=== PATIENT | male | born 1990 | race Caucasian/White ===

== ENCOUNTER 2019-05-27 13:00 | Emergency (ER) | payer SELFPAY ==
[2019-05-27 13:14] VITALS: BP 150/100
[2019-05-27] MEDS ORDERED: FLUCONAZOLE 100 MG TABLET PO STA (13:45)
--- NOTE | 2019-05-27 13:49 | ED Physician Documentation ---
History of Present Illness - Stated complaint Stated Complaint: RASH - Chief complaint Chief Complaint: General - History obtained from History obtained from: Patient (Extremely itchy rash, arms, neck, upper trunk for the last 3 days. He works with fiberglass. He says he has had similar milder rashes in the past that were treated with antifungal agent.) Review of Systems Constitutional: denies: Fever, Chills GI: denies: Abdominal Pain, Nausea, Vomiting Musculoskeletal: denies: Neck pain, Back pain PD PAST MEDICAL HISTORY - Present Medications Home Medications: Ambulatory Orders Medication Instructions Recorded Confirmed Doxepin [SINEquan] 10 mg PO TID PRN #20 capsule 05/27/19 Fluconazole [Diflucan] 150 mg PO ONCE PRN #1 tablet 05/27/19 - Allergies Allergies/Adverse Reactions: Allergies Allergy/AdvReac Type Severity Reaction Status Date / Time No Known Drug Allergies Allergy Verified 05/27/19 13:05 PD ED PE NORMAL - Vitals Vital signs reviewed: Yes - General General: Alert and oriented X 3, No acute distress - HEENT HEENT: Pharynx benign - Neck Neck: Supple, no meningeal sign, No bony TTP - Derm Derm: Other (He has nonspecific rash, slightly red raised areas almost confluent mostly in the back of the neck and occipital scalp, and flexor surfaces of the arms but not the wrists. It is not consistent with bug bites or scabies. It is also a little bit on the upper chest,) - Neuro Neuro: Alert and oriented X 3, Normal speech Results - Vitals Vitals: Vital Signs - 24 hr 05/27/19 13:05 Temperature 36.5 C Heart Rate 96 Respiratory 14 Rate Blood Pressure 150/100 H O2 Saturation 100 Oxygen O2 Source Room air Departure - Departure Disposition: 01 Home, Self Care Clinical Impression: Rash and nonspecific skin eruption Condition: Good Record reviewed to determine appropriate education?: Yes Instructions: ED Diaper Rash Infec Fungal Prescriptions: Doxepin [SINEquan] 10 mg PO TID PRN #20 capsule PRN Reason: Itching Fluconazole [Diflucan] 150 mg PO ONCE PRN #1 tablet PRN Reason: yeast infection Comments: As discussed to me this mostly looks like a fiberglass rash but as you mentioned you have been working with [employer] for a long time and never had this so we will also treat for A fungal infection. If not better in a week you can take a second dose of the antifungal medication. Do not drink or drive while taking the anti-itch medicine as it makes you a little bit sleepy. Return if worse. Follow-up with your doctor in 2 weeks if not better. Your blood pressure was elevated today on check into the emergency department. This does not mean that you have hypertension, it is a common phenomenon to come to the emergency department and have elevated blood pressure. I recommend that you see your primary care physician within the week to have it rechecked when you are feeling better.
== END 2019-05-27 14:00 | disposition home or self-care (01) ==
LOC: ED 13:00
DX: R21 Rash and other nonspecific skin eruption (principal); R03.0 Elevated blood-pressure reading, without diagnosis of hypertension
CPT/HCPCS: 99282; 99284; A9270

== ENCOUNTER 2019-09-02 08:00 | Outpatient (CLI) | payer SELFPAY | END 2019-09-02 23:59 | disposition home or self-care (01) | LOC: COV 08:00 | PROVIDERS: ATTEND Family Medicine | DX: R05 Cough (principal); R50.9 Fever, unspecified | CPT/HCPCS: 81599 ==

== ENCOUNTER 2020-09-10 17:39 | Emergency (ER) | payer OTHER ==
[2020-09-10 17:48] VITALS: BP 137/91
--- OUTSIDE RECORDS SUMMARY | 2020-09-10 17:59 | EXTERNAL MEDICAL SUMMARY RPT | Continuity of Care Document ---
:1990 Demographics Phone Unavailable Preferred Language Unknown Marital Status Unknown Christian Affiliation Unknown Race Unknown Ethnic Group Unknown Author Organization [facility] Address [address] [place] [address] Phone Social History date description facility [id number]
--- NOTE | 2020-09-10 19:26 | ED Physician Documentation ---
History of Present Illness - Stated complaint Stated Complaint: RT FOOT INJ - Chief complaint Chief Complaint: Ext Problem - History obtained from History obtained from: Patient - History of Present Illness Timing: Today Pain level max: 7 Pain level now: 7 - Additonal information Additional information: 29-year-old male states that he injured his right foot about a week ago and it has continued to cause him pain. States has a history of a fracture in that foot. Worse with walking and better with rest. 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 Review of Systems Constitutional: denies: Fever Respiratory: denies: Cough GI: denies: Vomiting PD PAST MEDICAL HISTORY - Past Medical History Past Medical History: No - Past Surgical History Past Surgical History: No - Present Medications Home Medications: Ambulatory Orders Medication Instructions Recorded Confirmed Naproxen Sodium [Aleve] 1 - 2 tab PO DAILY PRN 09/10/20 09/10/20 - Allergies Allergies/Adverse Reactions: Allergies Allergy/AdvReac Type Severity Reaction Status Date / Time No Known Drug Allergies Allergy Verified 09/10/20 17:48 - Living Situation Living Arrangement: reports: At home - Family History Family history: reports: Non contributory PD ED PE NORMAL - Vitals Vital signs reviewed: Yes - General General: Alert and oriented X 3, No acute distress - HEENT HEENT: Moist mucous membranes - Derm Derm: Warm and dry - Extremities Extremities: Other (Tender to palpation on the lateral aspect of the right foot near the base of fifth metatarsal. No swelling. No bruising. No deformity. Neurovascular intact. Otherwise normal exam of the foot and ankle) - Neuro Neuro: Alert and oriented X 3 Results - Vitals Vitals: Vital Signs - 24 hr 09/10/20 17:41 Temperature 36.7 C Heart Rate 96 Respiratory 16 Rate Blood Pressure 137/91 H O2 Saturation 100 Oxygen O2 Source Room air - Rads (name of study) Right foot x-ray Radiology: Prelim report reviewed, EMP read contemporaneously, See rad report (No acute abnormality) PD MEDICAL DECISION MAKING - ED course Complexity details: reviewed results, re-evaluated patient, considered differential, d/w patient ED course: No acute findings on x-ray. We will place the patient in a walking boot for comfort. He will continue to take himself out of this at home and stretch the foot and ankle. Follow-up with his doctor for further care. Patient counseled regarding signs and symptoms for which I believe and urgent re-evaluation would be necessary. Patient with good understanding of and agreement to plan and is comfortable going home at this time This document was made in part using voice recognition software. While efforts are made to proofread this document, sound alike and grammatical errors may occur. Departure - Departure Disposition: 01 Home, Self Care Clinical Impression: Foot sprain Qualifiers: Encounter type: initial encounter Laterality: right Qualified Code(s): S93.601A - Unspecified sprain of right foot, initial encounter Condition: Good Instructions: ED Sprain Foot Follow-Up: [facility] [Provider Group] [facility] [Provider Group] Comments: There are no fractures on your x-ray tonight. This is likely a foot sprain. You should follow-up with your doctor in 1 week for recheck. Return if you worsen. You can use the walking boot as needed for the next week to help with any discomfort, but we do not want to stay in the boot 25/12. You should have your foot rechecked in about a week if you are still having pain. Discharge Date/Time: 09/10/20 19:48
--- NOTE | 2020-09-10 19:38 | XRAY Report ---
PROCEDURE: Foot 3 View RT INDICATIONS: Trauma TECHNIQUE: 3 views of the foot were acquired. COMPARISON: None FINDINGS: Bones: No acute fractures or dislocations. No suspicious bony lesions. Soft tissues: No suspicious soft tissue calcification. IMPRESSION: No acute osseous abnormality. If there is clinical concern or persistent symptoms, additional imaging such as repeat radiographs or advanced imaging (e.g. CT, MRI) may be helpful for further evaluation. Reviewed by: Ashwin Mazariegos MD on 09/10/2020 7:37 PM PDT Approved by: Ashwin Mazariegos MD on 09/10/2020 7:37 PM PDT Station ID: [id number]
== END 2020-09-10 19:48 | disposition home or self-care (01) ==
LOC: ED 17:39
DX: S93.601A Unspecified sprain of right foot, initial encounter (principal); W22.8XXA Striking against or struck by other objects, initial encounter
CPT/HCPCS: 99282; 99283

== ENCOUNTER 2020-10-22 13:56 | Emergency (ER) | payer MEDICAID, OTHER ==
[2020-10-22 14:17] VITALS: BP 118/79
--- NOTE | 2020-10-22 14:39 | ED Physician Documentation ---
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 He states that he is trying to establish care here but has not been able to get in to see a primary doctor. He takes Seroquel 50 - 100 every night for sleep aid. denies other symptoms. Review of Systems Psychiatric: reports: Insomnia PD PAST MEDICAL HISTORY - Past Surgical History Past Surgical History: No - Present Medications Home Medications: Ambulatory Orders Medication Instructions Recorded Confirmed Naproxen Sodium [Aleve] 1 - 2 tab PO DAILY PRN 09/10/20 09/10/20 Naltrexone Microspheres [Vivitrol] 380 mg IM 10/22/20 Quetiapine Fumarate [Seroquel] 50 mg PO QPM PRN 30 Days #30 tablet 10/22/20 Quetiapine Fumarate [Seroquel] 100 mg PO 10/22/20 - Allergies Allergies/Adverse Reactions: Allergies Allergy/AdvReac Type Severity Reaction Status Date / Time No Known Drug Allergies Allergy Verified 09/10/20 17:48 PD ED PE NORMAL - Vitals Vital signs reviewed: Yes - General General: Alert and oriented X 3, No acute distress, Well developed/nourished - HEENT HEENT: Atraumatic, PERRL, EOMI - Neck Neck: Supple, no meningeal sign - Cardiac Cardiac: RRR - Respiratory Respiratory: No respiratory distress, Clear bilaterally - Derm Derm: Normal color, Warm and dry - Neuro Neuro: Alert and oriented X 3 - Psych Psych: Normal mood, Normal affect Results - Vitals Vitals: Vital Signs - 24 hr 10/22/20 14:09 Temperature 36.2 C L Heart Rate 88 Respiratory 16 Rate Blood Pressure 118/79 O2 Saturation 100 Oxygen O2 Source Room air PD MEDICAL DECISION MAKING - ED course ED course: 30-year-old man presented for medication refill. Brief prescription provided. Patient will follow up with a primary doctor. Return precautions given Departure - Departure Disposition: 01 Home, Self Care Clinical Impression: Medication refill, Insomnia Condition: Good Instructions: Insomnia Prescriptions: Quetiapine Fumarate [Seroquel] 50 mg PO QPM PRN 30 Days #30 tablet PRN Reason: Insomnia Comments: You are seen in the emergency department for medication refill. Please follow- up for establishment of care with a primary doctor this week. Return to emergency department if you experience any new or worsening symptoms or have other concerns
== END 2020-10-22 14:51 | disposition home or self-care (01) ==
LOC: ED 13:56
DX: G47.00 Insomnia, unspecified (principal); Z76.0 Encounter for issue of repeat prescription
CPT/HCPCS: 99282

== ENCOUNTER 2020-11-02 11:56 | Emergency (ER) | payer MEDICAID ==
--- OUTSIDE RECORDS SUMMARY | 2020-11-02 12:00 | EXTERNAL MEDICAL SUMMARY RPT | Continuity of Care Document ---
:1990 Demographics Phone Unavailable Preferred Language Unknown Marital Status Unknown Druze Affiliation Unknown Race Unknown Ethnic Group Unknown Author Organization [facility] Address [address] [place] [address] Phone Allergies Encounters Medications Problems Results
[2020-11-02 12:13] VITALS: BP 125/88
--- OUTSIDE RECORDS SUMMARY | 2020-11-02 12:20 | EXTERNAL MEDICAL SUMMARY RPT | Continuity of Care Document ---
:1990 Demographics Phone Unavailable Preferred Language Unknown Marital Status Unknown Judaism Affiliation Unknown Race Unknown Ethnic Group Unknown Author Organization [facility] Address [address] [place] [address] Phone Allergies Encounters Medications Problems Results
--- NOTE | 2020-11-02 13:41 | ED Physician Documentation ---
History of Present Illness - Stated complaint Stated Complaint: CHEST RASH - Chief complaint Chief Complaint: General - History obtained from History obtained from: Patient - Additonal information Additional information: Patient comes emergency department chief complaint of rash on chest and upper back for the last 3 weeks. Patient states that he has had this rash before and that usually goes away with an antifungal treatment. He denies any fever or chills. Mild itching. No swelling or itching in his throat. No other complaints at this time. Review of Systems Ten Systems: 10 systems reviewed and negative Constitutional: reports: Reviewed and negative Eyes: reports: Reviewed and negative Ears: reports: Reviewed and negative Nose: reports: Reviewed and negative Throat: reports: Reviewed and negative Cardiac: reports: Reviewed and negative Respiratory: reports: Reviewed and negative GI: reports: Reviewed and negative : reports: Reviewed and negative Skin: reports: Rash Musculoskeletal: reports: Reviewed and negative Neurologic: reports: Reviewed and negative Psychiatric: reports: Reviewed and negative Endocrine: reports: Reviewed and negative Immunocompromised: reports: Reviewed and negative PD PAST MEDICAL HISTORY - Past Medical History Past Medical History: No Cardiovascular: None Respiratory: None Neuro: None Endocrine/Autoimmune: None GI: None : None HEENT: None Psych: None Musculoskeletal: None Derm: None - Past Surgical History Past Surgical History: No - Present Medications Home Medications: Ambulatory Orders Medication Instructions Recorded Confirmed Naproxen Sodium [Aleve] 1 - 2 tab PO DAILY PRN 09/10/20 09/10/20 Naltrexone Microspheres [Vivitrol] 380 mg IM 10/22/20 Quetiapine Fumarate [Seroquel] 50 mg PO QPM PRN 30 Days #30 tablet 10/22/20 Quetiapine Fumarate [Seroquel] 100 mg PO 10/22/20 Itraconazole 200 mg PO DAILY 5 Days #10 11/02/20 Terbinafine HCl [Lamisil At] 30 gm TP BID 7 Days #1 bottle 11/02/20 - Allergies Allergies/Adverse Reactions: Allergies Allergy/AdvReac Type Severity Reaction Status Date / Time No Known Drug Allergies Allergy Verified 11/02/20 12:12 - Social History Does the pt smoke?: No Smoking Status: Never smoker Does the pt drink ETOH?: No Does the pt have substance abuse?: No - Immunizations Immunizations are current?: Yes - POLST Patient has POLST: No PD ED PE NORMAL - Vitals Vital signs reviewed: Yes - General General: Alert and oriented X 3, No acute distress - HEENT HEENT: Atraumatic, PERRL, EOMI, Moist mucous membranes - Neck Neck: Supple, no meningeal sign - Respiratory Respiratory: No respiratory distress - Derm Derm: Warm and dry, Other (Multiple flat, slightly erythematous patches noted over chest and upper back, which coalesce around base of neck and over her shoulders. No other lesions. No scaling of skin. Mild flaking. No moisture or drainage.) - Extremities Extremities: No deformity - Neuro Neuro: Alert and oriented X 3 - Psych Psych: Normal mood, Normal affect Results - Vitals Vitals: Vital Signs - 24 hr 11/02/20 12:00 Temperature 36.9 C Heart Rate 54 L Respiratory 15 Rate Blood Pressure 125/88 H O2 Saturation 100 Oxygen O2 Source Room air PD MEDICAL DECISION MAKING - ED course Complexity details: considered differential, d/w patient ED course: I discussed with the patient that while his rash Could be allergic in nature, it is most consistent with tinea versicolor. I have given patient prescription for oral and topical antifungals for this. We have discussed follow-up. Departure - Departure Disposition: 01 Home, Self Care Clinical Impression: Tinea versicolor Condition: Stable Instructions: ED T Versicolor Infec Fungal Prescriptions: Itraconazole 200 mg PO DAILY 5 Days #10 Terbinafine HCl [Lamisil At] 30 gm TP BID 7 Days #1 bottle
== END 2020-11-02 13:51 | disposition home or self-care (01) ==
LOC: ED 11:56
DX: B36.0 Pityriasis versicolor (principal)
CPT/HCPCS: 99282; 99284

== ENCOUNTER 2020-11-19 15:09 | Emergency (ER) | payer MEDICAID ==
--- NOTE | 2020-11-19 15:28 | ED Physician Documentation ---
History of Present Illness - Stated complaint Stated Complaint: RX REFILL - Chief complaint Chief Complaint: General - History obtained from History obtained from: Patient - History of Present Illness Timing: How many days ago (has had difficulty sleeping for several days as ran out of meds. Had been using Seroquel 50-100 mg nightly, but more commonly 100 mg. So last Rx of 50 mg # 30 did not last the month. Tried to get PMD appt and was given provider in [place], but he has not been able to get there yet. Requests refill.) Review of Systems Constitutional: denies: Fever, Chills Nose: denies: Rhinorrhea / runny nose, Congestion Throat: denies: Sore throat Respiratory: denies: Cough Psychiatric: reports: Insomnia. denies: Depressed, Suicidal, Anxiety PD PAST MEDICAL HISTORY - Past Medical History Cardiovascular: None Respiratory: None Neuro: None Endocrine/Autoimmune: None GI: None : None HEENT: None Psych: None Musculoskeletal: None Derm: None - Past Surgical History Past Surgical History: No - Present Medications Home Medications: Ambulatory Orders Medication Instructions Recorded Confirmed Quetiapine Fumarate [Seroquel] 100 mg PO DAILY PM 10/22/20 11/19/20 QUEtiapine [SEROquel] 100 mg PO QPM 30 Days #30 tablet 11/19/20 - Allergies Allergies/Adverse Reactions: Allergies Allergy/AdvReac Type Severity Reaction Status Date / Time No Known Drug Allergies Allergy Verified 11/19/20 15:22 - Social History Does the pt smoke?: No Smoking Status: Never smoker Does the pt drink ETOH?: No Does the pt have substance abuse?: No - Immunizations Immunizations are current?: Yes - POLST Patient has POLST: No PD ED PE NORMAL - Vitals Vital signs reviewed: Yes - General General: Alert and oriented X 3, No acute distress, Well developed/nourished - Derm Derm: Normal color, Warm and dry - Neuro Neuro: Alert and oriented X 3, No motor deficit, Normal speech Results - Vitals Vitals: Vital Signs - 24 hr 11/19/20 11/19/20 15:20 16:30 Temperature 36.6 C 37.1 C Heart Rate 66 75 Respiratory 16 18 Rate Blood Pressure 154/94 H 127/80 O2 Saturation 98 100 Oxygen O2 Source Room air PD MEDICAL DECISION MAKING - ED course Complexity details: considered differential, d/w patient Departure - Departure Disposition: 01 Home, Self Care Clinical Impression: No mechanism for timely refill of medication Insomnia Qualifiers: Insomnia type: unspecified Qualified Code(s): G47.00 - Insomnia, unspecified Condition: Stable Record reviewed to determine appropriate education?: Yes Prescriptions: QUEtiapine [SEROquel] 100 mg PO QPM 30 Days #30 tablet Comments: Seroquel as usual for help with the or insomnia. Please make a good effort to follow-up with the primary care for ongoing refills of your medications. The walk-in clinics are also an option. Discharge Date/Time: 11/19/20 16:27
[2020-11-19 16:31] VITALS: BP 127/80
== END 2020-11-19 16:27 | disposition home or self-care (01) ==
LOC: ED 15:09
DX: Z76.0 Encounter for issue of repeat prescription (principal); G47.00 Insomnia, unspecified
CPT/HCPCS: 99281

== ENCOUNTER 2020-12-24 18:03 | Emergency (ER) | payer MEDICAID ==
[2020-12-24 18:10] VITALS: BP 160/99
--- NOTE | 2020-12-24 19:23 | ED Physician Documentation ---
History of Present Illness - Stated complaint Stated Complaint: MED REFILL - Chief complaint Chief Complaint: General - Additonal information Additional information: 30-year-old male presents emergency department requesting refill of his Seroquel that he uses at night for sleep. Last had it filled here in the emergency department by our colleague. He has been unable to follow-up with PCP. Review of Systems Constitutional: reports: Reviewed and negative Ears: reports: Reviewed and negative Nose: reports: Reviewed and negative Cardiac: reports: Reviewed and negative Respiratory: reports: Reviewed and negative GI: reports: Reviewed and negative : reports: Reviewed and negative Skin: reports: Reviewed and negative Musculoskeletal: reports: Reviewed and negative Psychiatric: reports: Insomnia PD PAST MEDICAL HISTORY - Past Medical History Past Medical History: Yes Cardiovascular: None Respiratory: None Neuro: None Endocrine/Autoimmune: None GI: None : None HEENT: None Psych: None Musculoskeletal: None Derm: None Other Past Medical History: insomnia - Past Surgical History Past Surgical History: Yes HEENT: Myringotomy (tubes) - Present Medications Home Medications: Ambulatory Orders Medication Instructions Recorded Confirmed Quetiapine Fumarate [Seroquel] 100 mg PO DAILY PM 10/22/20 12/24/20 QUEtiapine [SEROquel] 100 mg PO QPM 30 Days #30 tablet 12/24/20 - Allergies Allergies/Adverse Reactions: Allergies Allergy/AdvReac Type Severity Reaction Status Date / Time No Known Drug Allergies Allergy Verified 12/24/20 18:07 - Social History Does the pt smoke?: No Smoking Status: Never smoker Does the pt drink ETOH?: Yes Does the pt have substance abuse?: No - Immunizations Immunizations are current?: Yes - POLST Patient has POLST: No PD ED PE NORMAL - General General: Alert and oriented X 3, No acute distress - Neck Neck: Supple, no meningeal sign - Cardiac Cardiac: RRR, No murmur - Respiratory Respiratory: Clear bilaterally - Abdomen Abdomen: Normal bowel sounds, Soft, Non tender, Non distended - Back Back: No CVA TTP, No spinal TTP Results - Vitals Vitals: Vital Signs - 24 hr 12/24/20 18:07 Temperature 37.1 C Heart Rate 75 Respiratory 18 Rate Blood Pressure 160/99 H O2 Saturation 99 Oxygen O2 Source Room air PD MEDICAL DECISION MAKING - ED course Complexity details: reviewed old records Departure - Departure Disposition: 01 Home, Self Care Clinical Impression: Medication refill Condition: Stable Record reviewed to determine appropriate education?: Yes Prescriptions: QUEtiapine [SEROquel] 100 mg PO QPM 30 Days #30 tablet Comments: I have given you 30 days of seroquel. Please fill the prescription in the future with your primary care provider. Good luck in continued recovery
== END 2020-12-24 19:26 | disposition home or self-care (01) ==
LOC: ED 18:03
DX: Z76.0 Encounter for issue of repeat prescription (principal); G47.00 Insomnia, unspecified
CPT/HCPCS: 99281; 99283